=== PATIENT | female | born 1955 | race American Indian/Alaskan Native ===

== ENCOUNTER 2017-03-20 13:23 | Emergency (ER) | payer BC, OTHER ==
[2017-03-20 13:37] VITALS: BP 125/77
[2017-03-20] MEDS ORDERED: Fluorescein 1 MG Ophth Strip EYERT ONE (13:45)
[2017-03-20] MEDS ORDERED: Tetracaine HCl/PF 0.5% 4 ML Bottle EYERT ONE (13:45)
--- NOTE | 2017-03-20 13:54 | EDM.PDOC ---
ED HPI GENERAL MEDICAL PROBLEM - General Chief Complaint: ENT Problem Stated Complaint: [id number] RIGHT EYE Time Seen by Provider: 03/20/17 13:45 Source of Information: Reports: Patient History Limitations: Reports: No Limitations - History of Present Illness INITIAL COMMENTS - FREE TEXT/NARRATIVE: 61 yo female presents with redness to outer part of right eye. States yesterday she noticed a small amount and today it has spread towards the pupil area. Denies blurred vision. Onset Date: 03/19/17 Duration: Getting Worse Location: Reports: Face Associated Symptoms: Reports: No Other Symptoms - Related Data Allergies Allergy/AdvReac Type Severity Reaction Status Date / Time codeine Allergy Cannot Verified 10/30/15 07:37 Remember iodine Allergy Cannot Verified 10/30/15 07:37 Remember latex Allergy Itching Verified 10/30/15 07:37 Penicillins Allergy Cannot Verified 10/30/15 07:37 Remember Sulfa (Sulfonamide Allergy Cannot Verified 10/30/15 07:37 Antibiotics) Remember tetracycline Allergy Cannot Verified 10/30/15 07:37 Remember Home Meds: Home Meds Aspirin [Halfprin] 81 mg PO DAILY 01/20/15 [History] Biotin 5,000 mcg PO BID PRN 01/20/15 [History] Calcium Carbonate/Vitamin D3 [Calcium 600 + Vit D 400 Tablet] 2 tab PO DAILY [History] Estrogens, Conjugated [Premarin] 0.625 mg PO DAILY 01/20/15 [History] Multivitamin with Minerals [Multiple Vitamin] 1 tab PO DAILY 01/20/15 [History] Tenstrike-3 Fatty Acids [Tenstrike-3] 300 mg PO DAILY 01/20/15 [History] Omeprazole 20 mg PO DAILY 01/20/15 [History] Past Medical History HEENT History: Reports: None Cardiovascular History: Reports: None Respiratory History: Reports: None Gastrointestinal History: Reports: GERD Genitourinary History: Reports: None Other OB/BYN History: POST MENOPAUSAL Musculoskeletal History: Reports: None Other Musculoskeletal History: DEGENERATIVE DISC DISEASE; FRACTURE OF R TIBIA ( CLOSED REDUCTION), Neurological History: Reports: None Psychiatric History: Reports: None Endocrine/Metabolic History: Reports: None Hematologic History: Reports: None Immunologic History: Reports: None Oncologic (Cancer) History: Reports: None Dermatologic History: Reports: None - Infectious Disease History Infectious Disease History: Reports: Chicken Pox, Mumps - Past Surgical History HEENT Surgical History: Reports: None Cardiovascular Surgical History: Reports: None GI Surgical History: Reports: Appendectomy, Colonoscopy, EGD Female Surgical History: Reports: Hysterectomy, Tubal Ligation Musculoskeletal Surgical History: Reports: Shoulder Surgery Other Oncologic Surgeries/Procedures: fibroids right breast removed 10 yrs ago....Benign Social & Family History - Tobacco Use Smoking Status *Q: Never Smoker Second Hand Smoke Exposure: Yes - Caffeine Use Caffeine Use: Reports: Tea - Recreational Drug Use Recreational Drug Use: No ED ROS GENERAL - Review of Systems Review Of Systems: ROS reveals no pertinent complaints other than HPI. ED EXAM GENERAL W FULL EYE - Physical Exam Exam: See Below Exam Limited By: No Limitations General Appearance: Alert, WD/WN, No Apparent Distress Eye Exam: Right Eye: Conjunctival Injection, Left Eye: Normal Inspection, Bilateral Eye: PERRL Visual Acuity (R) 20/: 30 Visual Acuity (L) 20/: 30 With Correction: No Eyelids: Bilateral: Normal Appearance Conjunctiva & Sclera: Right: Subconjuctival Hemorrhage Cornea Exam: Right: Corneal Abrasion, Examined with Flourescein Extraocular Movements: Bilateral: Intact Pupils: Normal Accommodation Pupillary Size: Bilateral: 4 mm Pupillary Reaction: Bilateral: Brisk Anterior Chamber: Bilateral: Normal Appearance Respiratory/Chest: No Respiratory Distress, Lungs Clear, Normal Breath Sounds, No Accessory Muscle Use, Chest Non-Tender Cardiovascular: Normal Peripheral Pulses, Regular Rate, Rhythm, No Edema, No Gallop, No JVD, No Murmur, No Rub Course - Vital Signs Last Recorded V/S: Last Vital Signs Temp 97.6 F 03/20/17 13:36 Pulse 68 03/20/17 13:36 Resp 16 03/20/17 13:36 BP 125/77 03/20/17 13:36 Pulse Ox 100 03/20/17 13:36 - Orders/Labs/Meds Orders: Active Orders 24 hr Category Date Time Status Fluorescein [Ful-Cris] Med 03/20/17 13:45 Once 1 mg EYERT ONETIME ONE Tetracaine HCl/PF [Tetracaine 0.5% Steri-Unit Emilie] Med 03/20/17 13:45 Once 1 ml EYERT ASDIRECTED ONE Departure - Departure Time of Disposition: 13:58 Disposition: Home, Self-Care 01 Condition: Good Clinical Impression: Conjunctival abrasion Qualifiers: Encounter type: initial encounter Laterality: right Qualified Code(s): S05.01XA - Injury of conjunctiva and corneal abrasion without foreign body, right eye, initial encounter - Discharge Information Instructions: Subconjunctival Hemorrhage Forms: ED Department Discharge, ED Return to Work/School Form Additional Instructions: Use eye drops as directed. You have a small abrasion to your conjunctiva with some mild bleeding. This will heal over time. Return for any worsening symptoms. follow up with eye doctor if not improving in 5-7 days. Care Plan Goals: Polytrim ophth - My Orders Last 24 Hours: My Active Orders 03/20/17 13:45 Fluorescein [Ful-Cris] 1 mg EYERT ONETIME ONE Tetracaine HCl/PF [Tetracaine 0.5% Steri-Unit Emilie] 1 ml EYERT ASDIRECTED ONE - Assessment/Plan Last 24 Hours: My Active Orders 03/20/17 13:45 Fluorescein [Ful-Cris] 1 mg EYERT ONETIME ONE Tetracaine HCl/PF [Tetracaine 0.5% Steri-Unit Emilie] 1 ml EYERT ASDIRECTED ONE
== END 2017-03-20 14:08 | disposition home or self-care (01) ==
LOC: DL.ED 13:23
DX: S05.01XA Injury of conjunctiva and corneal abrasion without foreign body, right eye, initial encounter (principal); K21.9 Gastro-esophageal reflux disease without esophagitis; Z90.49 Acquired absence of other specified parts of digestive tract; Z90.710 Acquired absence of both cervix and uterus; Z98.890 Other specified postprocedural states; Z79.82 Long term (current) use of aspirin; Z79.899 Other long term (current) drug therapy; Z88.0 Allergy status to penicillin; Z88.1 Allergy status to other antibiotic agents; Z88.2 Allergy status to sulfonamides; Z88.5 Allergy status to narcotic agent; Z91.040 Latex allergy status; X58.XXXA Exposure to other specified factors, initial encounter
CPT/HCPCS: 99283; A9270

== ENCOUNTER 2022-05-12 07:28 | Day surgery (SDC) | payer MEDICARE ==
[2022-05-12] MEDS ORDERED: Dexamethasone 4 MG/ML SDV IV ONE (07:29)
[2022-05-12] MEDS ORDERED: Sodium Chloride 0.9% 10 ML Syringe IV ONE (07:29)
[2022-05-12] MEDS ORDERED: Midazolam 1 MG/ML 2 ML SDV IV ONE (07:29)
[2022-05-12] MEDS ORDERED: Acetaminophen/Codeine 300-30 MG Tab PO PRN (07:30)
[2022-05-12] MEDS ORDERED: Acetaminophen 325 MG Tab PO PRN (07:30)
[2022-05-12] MEDS: Proparacaine 0.5% Ophth Soln 15 ML Bottle EYELF ONE ×3 (07:30→08:57)
[2022-05-12] MEDS ORDERED: Ondansetron 4 MG/2 ML SDV IVPUSH PRN (07:30)
[2022-05-12] MEDS: Apraclonidine 0.5% Ophth Soln 5 ML Bot EYELF ONE (07:31)
[2022-05-12] MEDS: Povidone-Iodine 5% Sterile Ophth Soln 30 ML Bottle EYELF ONE ×3 (07:31→08:57)
[2022-05-12] MEDS: Diclofenac Sodium 0.1% Ophth Soln 5 ML Bottle EYELF ONE ×2 (07:32→08:57)
[2022-05-12] MEDS: Dexamethasone/Tobramycin 0.1-0.3% Ophth Oint 3.5 GM Tube EYELF ONE ×2 (07:33→08:57)
[2022-05-12] MEDS: Lidocaine 1% 30 ML SDV ONE ×2 (07:33→08:58)
[2022-05-12] MEDS: Vancomycin 500 MG SDV EYELF ONE ×2 (07:34→08:58)
[2022-05-12] MEDS: Chondroitin Sulfate/Hyaluronate Sodium Ophth Inj 0.75 ML Syringe EYELF ONE ×2 (07:34→08:59)
[2022-05-12] MEDS: Balanced Salt Solution Ophth Irrig 500 ML Bottle IOCULAR ONE ×2 (07:34→08:58)
[2022-05-12] MEDS: Sodium Chloride 0.9% 10 ML Syringe FLUSH PRN (07:59)
[2022-05-12] MEDS: Moxifloxacin 0.5% Ophth Soln 3 ML Bottle EYELF ONE (08:03)
[2022-05-12] MEDS: Phenylephrine 10% Ophth Soln 5 ML Bot EYELF PRN (08:04)
[2022-05-12] MEDS: Tropicamide 1% Ophth Soln 15 ML Bottle EYELF ONE (08:04)
[2022-05-12] MEDS: Timolol Maleate 0.5% Ophth Soln 5 ML Bottle EYELF ONE (08:05)
[2022-05-12] MEDS: Cataract Ophth Solution EYELF ONE (08:06)
[2022-05-12 10:43] VITALS: BP 133/75; PULSE 55
== END 2022-05-12 09:29 | disposition home or self-care (01) ==
LOC: DL.SDS 07:28
PROVIDERS: ATTEND Ophthalmology
DX: E11.36 Type 2 diabetes mellitus with diabetic cataract (principal); H25.812 Combined forms of age-related cataract, left eye; K21.9 Gastro-esophageal reflux disease without esophagitis; J30.9 Allergic rhinitis, unspecified; E78.5 Hyperlipidemia, unspecified; Z79.82 Long term (current) use of aspirin; Z79.899 Other long term (current) drug therapy; Z91.013 Allergy to seafood; Z88.6 Allergy status to analgesic agent; Z91.011 Allergy to milk products; Z88.5 Allergy status to narcotic agent; Z88.2 Allergy status to sulfonamides; Z91.040 Latex allergy status
CPT/HCPCS: 00142; A9270-GY; J1100; J2250; J3370; J3490; V2632

== ENCOUNTER 2022-06-02 07:22 | Day surgery (SDC) | payer MEDICARE, OTHER ==
[~2022-06-02 07:22] MED LIST: Apraclonidine 0.5% Ophth Soln 5 ML Bot EYERT ONE; Balanced Salt Solution Ophth Irrig 500 ML Bottle IOCULAR ONE; Dexamethasone/Tobramycin 0.1-0.3% Ophth Oint 3.5 GM Tube EYERT ONE; Diclofenac Sodium 0.1% Ophth Soln 5 ML Bottle EYERT ONE; Lidocaine 1% 30 ML SDV ONE; Povidone-Iodine 5% Sterile Ophth Soln 30 ML Bottle EYERT ONE; Proparacaine 0.5% Ophth Soln 15 ML Bottle EYERT ONE; Vancomycin 500 MG SDV EYERT ONE
[2022-06-02] MEDS ORDERED: Midazolam 1 MG/ML 2 ML SDV IV ONE (07:23)
[2022-06-02] MEDS ORDERED: Sodium Chloride 0.9% 10 ML Syringe IV ONE (07:23)
[2022-06-02] MEDS ORDERED: Chondroitin Sulfate/Hyaluronate Sodium Ophth Inj 0.75 ML Syringe EYERT ONE ×2 (07:23→10:05)
[2022-06-02] MEDS ORDERED: Dexamethasone 4 MG/ML SDV IV ONE (07:23)
[2022-06-02] MEDS ORDERED: Ondansetron 4 MG/2 ML SDV IVPUSH PRN (07:30)
[2022-06-02] MEDS ORDERED: Acetaminophen 325 MG Tab PO PRN (07:30)
[2022-06-02] MEDS ORDERED: Sodium Chloride 0.9% 10 ML Syringe FLUSH PRN (07:30)
[2022-06-02] MEDS ORDERED: Phenylephrine 10% Ophth Soln 5 ML Bot EYERT PRN (07:30)
[2022-06-02] MEDS ORDERED: Povidone-Iodine 5% Sterile Ophth Soln 30 ML Bottle EYERT ONE ×2 (07:30→10:00)
[2022-06-02] MEDS ORDERED: Tropicamide 1% Ophth Soln 15 ML Bottle EYERT ONE (07:30)
[2022-06-02] MEDS ORDERED: Cataract Ophth Solution EYERT ONE (07:30)
[2022-06-02] MEDS ORDERED: Proparacaine 0.5% Ophth Soln 15 ML Bottle EYERT ONE ×2 (07:30→10:00)
[2022-06-02] MEDS ORDERED: Acetaminophen/Codeine 300-30 MG Tab PO PRN (07:30)
[2022-06-02] MEDS ORDERED: Timolol Maleate 0.5% Ophth Soln 5 ML Bottle EYERT ONE (07:30)
[2022-06-02] MEDS ORDERED: Moxifloxacin 0.5% Ophth Soln 3 ML Bottle EYERT ONE (07:30)
[2022-06-02] MEDS ORDERED: Apraclonidine 0.5% Ophth Soln 5 ML Bot EYERT ONE (10:01)
[2022-06-02] MEDS ORDERED: Dexamethasone/Tobramycin 0.1-0.3% Ophth Oint 3.5 GM Tube EYERT ONE (10:03)
[2022-06-02] MEDS ORDERED: Balanced Salt Solution Ophth Irrig 500 ML Bottle IOCULAR ONE (10:03)
[2022-06-02] MEDS ORDERED: Lidocaine 1% 30 ML SDV ONE (10:03)
[2022-06-02] MEDS ORDERED: Vancomycin 500 MG SDV EYERT ONE (10:04)
[2022-06-02] MEDS ORDERED: Dexamethasone 4 MG/ML SDV ONE (10:06)
[2022-06-02] MEDS ORDERED: Acetylcholine 20 MG/2 ML Intraocular Inj Kit EYERT ONE (10:06)
[2022-06-02] MEDS ORDERED: Chondroitin Sulfate/Hyaluronate Sodium Ophth Inj 0.5 ML Syringe IOCULAR ONE (10:07)
[2022-06-02 10:35] VITALS: BP 122/70; PULSE 59
== END 2022-06-02 10:45 | disposition home or self-care (01) ==
LOC: DL.SDS 07:22
PROVIDERS: ATTEND Ophthalmology
DX: E11.36 Type 2 diabetes mellitus with diabetic cataract (principal); H25.811 Combined forms of age-related cataract, right eye; E78.5 Hyperlipidemia, unspecified; K21.9 Gastro-esophageal reflux disease without esophagitis; J30.9 Allergic rhinitis, unspecified; Z88.0 Allergy status to penicillin; Z88.8 Allergy status to other drugs, medicaments and biological substances; Z88.2 Allergy status to sulfonamides; Z91.011 Allergy to milk products; Z91.040 Latex allergy status; Z91.041 Radiographic dye allergy status
CPT/HCPCS: 00142; 66984; A9270; J1100; J2250; J3370; J3490; V2632

== ENCOUNTER 2023-06-07 06:27 | Day surgery (SDC) | payer MEDICARE, OTHER ==
[2023-06-07] MEDS ORDERED: Dextrose 5%-0.45% NaCl 1,000 ML IV SCH (06:30)
[2023-06-07] MEDS ORDERED: Midazolam 1 MG/ML 2 ML SDV ONE (06:53)
[2023-06-07] MEDS ORDERED: fentaNYL 100 MCG/2 ML SDV ONE (06:53)
[2023-06-07] MEDS ORDERED: fentaNYL 100 MCG/2 ML SDV IV ONE ×2 (06:58→06:59)
[2023-06-07] MEDS ORDERED: Midazolam 1 MG/ML 2 ML SDV IV ONE ×4 (06:59→07:04)
[2023-06-07 12:25] VITALS: BP 118/61; PULSE 70
== END 2023-06-07 09:10 | disposition home or self-care (01) ==
LOC: DL.ENDO 06:27
PROVIDERS: ATTEND Internal Medicine Gastroenterology
DX: Z12.11 Encounter for screening for malignant neoplasm of colon (principal); K63.5 Polyp of colon; K21.9 Gastro-esophageal reflux disease without esophagitis; Z79.899 Other long term (current) drug therapy; Z88.0 Allergy status to penicillin; Z88.5 Allergy status to narcotic agent; Z88.2 Allergy status to sulfonamides; Z91.041 Radiographic dye allergy status
CPT/HCPCS: J2250; J3010; J7042

== ENCOUNTER 2023-12-12 08:24 | Day surgery (SDC) | payer OTHER ==
[2023-12-12] MEDS ORDERED: Bupivacaine 0.5% 30 ML SDV ONE (08:45)
[2023-12-12] MEDS ORDERED: Lidocaine 1% 30 ML SDV ONE (08:46)
[2023-12-12] MEDS: Clindamycin in 0.9 % Sod Chlor 600 MG in Premix Bag 1 BAG IV ONE (09:09)
[2023-12-12] MEDS: Sodium Chloride 0.9% 10 ML Syringe FLUSH PRN (09:11)
[2023-12-12] MEDS ORDERED: Lidocaine 1% 4 ML ONE (09:28)
[2023-12-12] MEDS: Lactated Ringers 1,000 ML IV SCH (09:30)
[2023-12-12] MEDS: Bupivacaine 0.5% 30 ML SDV INJECT ONE (09:49)
[2023-12-12] MEDS: Lidocaine 1% 30 ML SDV INJECT ONE (09:49)
[2023-12-12 11:40] VITALS: BP 119/61; PULSE 52
== END 2023-12-12 12:28 | disposition home or self-care (01) ==
LOC: DL.SDS 08:24
PROVIDERS: ATTEND Podiatrist Foot & Ankle Surgery
DX: L84 Corns and callosities (principal); E11.9 Type 2 diabetes mellitus without complications; K21.9 Gastro-esophageal reflux disease without esophagitis; I25.10 Atherosclerotic heart disease of native coronary artery without angina pectoris; Z88.0 Allergy status to penicillin; Z91.09 Other allergy status, other than to drugs and biological substances; Z88.2 Allergy status to sulfonamides; Z91.013 Allergy to seafood; Z79.899 Other long term (current) drug therapy
CPT/HCPCS: 28288; J0665; J3490; J7120; 00142